=== PATIENT | female | born 1985 | race African-American/Black ===

== ENCOUNTER 2024-02-19 14:55 | Emergency (ER) | payer MEDICARE, MEDICAID ==
[2024-02-19] MEDS ORDERED: Acetaminophen 500 MG TAB ONE (15:42)
[2024-02-19] MEDS ORDERED: Ketorolac Tromethamine 30 MG (1 mL) VIAL ONE (15:42)
[2024-02-19] MEDS ORDERED: Ondansetron ODT 4 MG TAB ONE (15:48)
== END 2024-02-19 16:18 | disposition home or self-care (01) ==
LOC: CSHERS 14:55
DX: S92.511A Displaced fracture of proximal phalanx of right lesser toe(s), initial encounter for closed fracture (principal); F17.210 Nicotine dependence, cigarettes, uncomplicated; X58.XXXA Exposure to other specified factors, initial encounter
CPT/HCPCS: 96372; J1885; Q0162